=== PATIENT | male | born 1975 | race Caucasian/White ===

== ENCOUNTER → 2018-08-28 21:33 | Outpatient (CLI) | payer OTHER, SELFPAY | PROVIDERS: Referring Provider Nurse Practitioner; Visit Provider Nurse Practitioner | DX: S61.209A Unspecified open wound of unspecified finger without damage to nail, initial encounter (principal); L08.9 Local infection of the skin and subcutaneous tissue, unspecified | CPT/HCPCS: 87070; 87205 ==